=== PATIENT | female | born 1965 | race American Indian/Alaskan Native ===

== ENCOUNTER 2016-10-19 14:20 | Emergency (ER) | payer BC, MEDICAID, OTHER ==
[2016-10-19 15:51] VITALS: BP 97/66
--- NOTE | 2016-10-19 16:15 | EDM.PDOC ---
ED HPI GENERAL MEDICAL PROBLEM - General Chief Complaint: Upper Extremity Injury/Pain Stated Complaint: [id number] FELL IN ALLEY Time Seen by Provider: 10/19/16 16:09 Source of Information: Reports: Patient History Limitations: Reports: No Limitations - History of Present Illness INITIAL COMMENTS - FREE TEXT/NARRATIVE: This 50 yo female patient reports to the ED with pain in her right hand over the 3-5 MCP joints and some left sided posterior neck pain. The patient reports she was walking in an alley when she tripped and fell. The patient reports no loss of consciousness before, during or after the fall. The patient reports she has been attempting to rest and ice the area, but she continues to be unable to make a fist. The patient also has an abrasion to the right knee. Onset: Today Duration: Hour(s):, Constant Location: Reports: Neck (left lateral posterior neck), Upper Extremity, Right (3 -5 MCP), Lower Extremity, Right (knee abrsion) Quality: Reports: Ache, Dull Severity: Moderate Improves with: Reports: None Worsens with: Reports: None Context: Reports: Other (fall) Associated Symptoms: Reports: No Other Symptoms Right Hand Pain Score (Numeric/FACES): 8 - Related Data Allergies Allergy/AdvReac Type Severity Reaction Status Date / Time No Known Allergies Allergy Verified 08/10/14 16:24 Home Meds: Home Meds Calcium Carbonate [Calcium] 1 tab PO DAILY 08/10/14 [History] Lisinopril 2.5 mg PO DAILY 08/10/14 [History] metFORMIN [Glucophage] 1,000 mg PO BID 08/10/14 [History] Past Medical History HEENT History: Reports: None Cardiovascular History: Reports: None Respiratory History: Reports: None Gastrointestinal History: Reports: None Genitourinary History: Reports: None 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 Neurological History: Reports: None Psychiatric History: Reports: Depression Endocrine/Metabolic History: Reports: Diabetes, Type II Hematologic History: Reports: None Immunologic History: Reports: None Oncologic (Cancer) History: Reports: None Dermatologic History: Reports: None - Infectious Disease History Infectious Disease History: Reports: None - Past Surgical History HEENT Surgical History: Reports: None Cardiovascular Surgical History: Reports: None Respiratory Surgical History: Reports: None GI Surgical History: Reports: Cholecystectomy Female Surgical History: Reports: None Endocrine Surgical History: Reports: None Neurological Surgical History: Reports: None Musculoskeletal Surgical History: Reports: Other (See Below) Other Musculoskeletal Surgeries/Procedures:: ankle surgery X2 Social & Family History - Tobacco Use Smoking Status *Q: Current Some Day Smoker Years of Tobacco use: 33 Packs/Tins Daily: 0.1 - Caffeine Use Caffeine Use: Reports: Coffee, Energy Drinks, Soda, Tea - Alcohol Use Days Per Week of Alcohol Use: 0 - Recreational Drug Use Recreational Drug Use: Yes Drug Use in Last 12 Months: Yes Recreational Drug Type: Reports: Marijuana/Hashish Recreational Drug Use Frequency: Not Used In Over 4 Months - Living Situation & Occupation Living situation: Reports: Single, with Family Occupation: Employed Review of Systems - Review of Systems Review Of Systems: ROS reveals no pertinent complaints other than HPI. ED EXAM, GENERAL - Physical Exam Exam: See Below Exam Limited By: No Limitations General Appearance: Alert, WD/WN, Moderate Distress Eye Exam: Bilateral Eye: EOMI, Normal Inspection, PERRL Ears: Normal External Exam, Normal Canal, Hearing Grossly Normal, Normal TMs Nose: Normal Inspection, Normal Mucosa, No Blood Throat/Mouth: Normal Inspection, Normal Lips, Normal Teeth, Normal Gums, Normal Oropharynx, Normal Voice, No Airway Compromise Head: Atraumatic, Normocephalic Neck: Normal Inspection, Supple, Full Range of Motion, Tender Lateral (left posterior lateral ) Respiratory/Chest: No Respiratory Distress, Lungs Clear, Normal Breath Sounds, No Accessory Muscle Use, Chest Non-Tender Cardiovascular: Normal Peripheral Pulses, Regular Rate, Rhythm, No Edema, No Gallop, No JVD, No Murmur, No Rub GI/Abdominal: Normal Bowel Sounds, Soft, Non-Tender, No Organomegaly, No Distention, No Abnormal Bruit, No Mass (Female) Exam: Deferred Rectal (Female) Exam: Deferred Back Exam: Normal Inspection, Full Range of Motion Extremities: Arm Pain (right hand pain with swelling), Other (right knee abrasion) Neurological: Alert, Oriented, CN II-XII Intact, Normal Cognition, Normal Gait, Normal Reflexes, No Motor/Sensory Deficits Psychiatric: Normal Affect, Normal Mood Skin Exam: Warm, Dry, Intact, Normal Color, No Rash Lymphatic: No Adenopathy Course - Vital Signs Last Recorded V/S: Last Vital Signs Temp 36.4 C 10/19/16 15:47 Pulse 55 L 10/19/16 15:47 Resp 16 10/19/16 15:47 BP 97/66 10/19/16 15:47 Pulse Ox 98 10/19/16 15:47 - Orders/Labs/Meds Orders: Active Orders 24 hr Category Date Time Status Hand Comp Min 3V Rt [CR] Urgent Exams 10/19/16 15:54 Taken Departure - Departure Time of Disposition: 16:24 Disposition: Home, Self-Care 01 Condition: Fair Clinical Impression: Contusion of right hand Qualifiers: Encounter type: initial encounter Qualified Code(s): S60.221A - Contusion of right hand, initial encounter - Discharge Information Instructions: Hand Contusion, [id number] Forms: ED Department Discharge Care Plan Goals: The patient was advised of the examination and x-ray results during the visit. The patient was placed in a splint for her right hand. The patient should rest, ice and elevate the right hand over the next 48 hours. The patient was given a dose of Naproxen while in the ED. If the patient has any additional symptoms or concerns, the patient should follow-up with her primary care facility or return to the ED. - My Orders Last 24 Hours: My Active Orders 10/19/16 15:54 Hand Comp Min 3V Rt [CR] Urgent - Assessment/Plan Last 24 Hours: My Active Orders 10/19/16 15:54 Hand Comp Min 3V Rt [CR] Urgent
--- NOTE | 2016-10-19 16:16 | CR ---
Clinical history: 50-year-old female injured right hand (fall). Interpretation: Chronic arthritic degenerative changes involving the first metacarpophalangeal and a ll interphalangeal/DIP joints. No sign of right hand fracture or dislocation but faint transverse lucent line across the "waist" of the carpal navicular bone that could represent occult nondisplaced fracture. Point tenderness anato irineo snuffbox? No other fracture/dislocation of the wrist. CONCLUSION: Subtle observation navicular bone left wrist (see above). No fracture or dislocation gannon dYissel Osteoarthritis.
[2016-10-19] MEDS ORDERED: Naproxen 500 MG Tab PO ONE (16:28)
== END 2016-10-19 16:40 | disposition home or self-care (01) ==
LOC: DL.ED 14:20
DX: S60.221A Contusion of right hand, initial encounter (principal); S80.211A Abrasion, right knee, initial encounter; E11.9 Type 2 diabetes mellitus without complications; F17.210 Nicotine dependence, cigarettes, uncomplicated; Z79.84 Long term (current) use of oral hypoglycemic drugs; Z98.890 Other specified postprocedural states; Z90.49 Acquired absence of other specified parts of digestive tract; Z79.899 Other long term (current) drug therapy; W01.198A Fall on same level from slipping, tripping and stumbling with subsequent striking against other object, initial encounter
CPT/HCPCS: 73130; 99284; A9270

== ENCOUNTER 2017-09-12 10:06 | Emergency (ER) | payer MEDICAID ==
[2017-09-12 10:26] VITALS: BP 110/54
--- NOTE | 2017-09-12 10:30 | EDM.PDOC ---
ED HPI GENERAL MEDICAL PROBLEM - General Chief Complaint: Lower Extremity Injury/Pain Stated Complaint: [id number] SPURS ON RIGHT FOOT CANT WALK ON IT Time Seen by Provider: 09/12/17 10:27 Source of Information: Reports: Patient, Old Records, RN, RN Notes Reviewed History Limitations: Reports: No Limitations - History of Present Illness INITIAL COMMENTS - FREE TEXT/NARRATIVE: Pt presents to ER from home with c/o right ankle pain, and cannot walk on it. Pt has hx of chronic rt ankle pain with known bone spurs. She has seen Dr. Shara [facility]es [facility], and has an MRI of her ankle scheduled for tomorrow , but states she couldn't wait due to the pain. Duration: Chronic, Getting Worse Location: Reports: Lower Extremity, Right Quality: Reports: Ache, Same as Previous Episode Severity: Severe Improves with: Reports: None Worsens with: Reports: Other (weight bearing), Movement Associated Symptoms: Reports: No Other Symptoms Treatments TOOL GRINDER: Reports: Acetaminophen, NSAIDS, Other Medication(s) Right Feet Pain Score (Numeric/FACES): 10 - Related Data Allergies Allergy/AdvReac Type Severity Reaction Status Date / Time No Known Allergies Allergy Verified 09/12/17 10:26 Home Meds: Home Meds Calcium Carbonate [Calcium] 1 tab PO DAILY 08/10/14 [History] Lisinopril 2.5 mg PO DAILY 08/10/14 [History] metFORMIN [Glucophage] 1,000 mg PO BID 08/10/14 [History] Etodolac 1 tab PO BID 09/12/17 [History] FLUoxetine HCl [Fluoxetine HCl] 20 mg PO DAILY 09/12/17 [History] Glimepiride [Amaryl] 2 mg PO DAILY 09/12/17 [History] Hydrocodone/Acetaminophen [Hydrocodon-Acetaminophen 5-325] 1 each PO ASDIRECTED PRN 09/12/17 [History] SitaGLIPtin [Januvia] 50 mg PO DAILY 09/12/17 [History] atorvaSTATin [Lipitor] 20 mg PO DAILY 09/12/17 [History] Past Medical History HEENT History: Reports: None Cardiovascular History: Reports: None Respiratory History: Reports: None Gastrointestinal History: Reports: None Genitourinary History: Reports: None 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 Neurological History: Reports: None Psychiatric History: Reports: Depression Endocrine/Metabolic History: Reports: Diabetes, Type II Hematologic History: Reports: None Immunologic History: Reports: None Oncologic (Cancer) History: Reports: None Dermatologic History: Reports: None - Infectious Disease History Infectious Disease History: Reports: None - Past Surgical History HEENT Surgical History: Reports: None Cardiovascular Surgical History: Reports: None Respiratory Surgical History: Reports: None GI Surgical History: Reports: Cholecystectomy Female Surgical History: Reports: None Endocrine Surgical History: Reports: None Neurological Surgical History: Reports: None Musculoskeletal Surgical History: Reports: Other (See Below) Other Musculoskeletal Surgeries/Procedures:: ankle surgery X2 Social & Family History - Family History Family Medical History: Noncontributory - Caffeine Use Caffeine Use: Reports: Coffee, Energy Drinks, Soda, Tea - Living Situation & Occupation Living situation: Reports: Single, with Family Occupation: Employed Review of Systems - Review of Systems Review Of Systems: ROS reveals no pertinent complaints other than HPI. ED EXAM, GENERAL - Physical Exam Exam: See Below Exam Limited By: No Limitations General Appearance: Alert, WD/WN, No Apparent Distress Throat/Mouth: Normal Voice Head: Atraumatic, Normocephalic Respiratory/Chest: No Respiratory Distress Cardiovascular: Normal Peripheral Pulses Extremities: No Pedal Edema, Normal Capillary Refill, Joint Swelling (Rt ankle) , Limited Range of Motion (Rt ankle due to pain) Neurological: Alert, Oriented, Normal Cognition, No Motor/Sensory Deficits Psychiatric: Normal Mood Skin Exam: Warm, Dry, Intact, Normal Color, No Rash Course - Vital Signs Last Recorded V/S: Last Vital Signs Temp 36.5 C 09/12/17 10:22 Pulse 61 09/12/17 10:22 Resp 16 09/12/17 10:22 BP 110/54 L 09/12/17 10:22 Pulse Ox 98 09/12/17 10:22 - Orders/Labs/Meds Orders: Active Orders 24 hr Category Date Time Status DME for Discharge [COMM] Routine Oth 09/12/17 10:51 Ordered Departure - Departure Time of Disposition: 10:53 Disposition: Home, Self-Care 01 Condition: Good Clinical Impression: Bone spur of right ankle Degenerative arthritis of right ankle Qualifiers: Osteoarthritis type: unspecified Qualified Code(s): M19.071 - Primary osteoarthritis, right ankle and foot - Discharge Information Instructions: Crutch Use, Adult, [id number], Osteoarthritis Forms: ED Department Discharge Additional Instructions: Use crutches to be non-weight bearing, or partial weight bearing on the right ankle. Rest, ice, and elevate the right ankle. Follow up for MRI and with Dr. Shara Borges as planned. - My Orders Last 24 Hours: My Active Orders 09/12/17 10:51 DME for Discharge [COMM] Routine - Assessment/Plan Last 24 Hours: My Active Orders 09/12/17 10:51 DME for Discharge [COMM] Routine
== END 2017-09-12 11:10 | disposition home or self-care (01) ==
LOC: DL.ED 10:06
DX: M19.071 Primary osteoarthritis, right ankle and foot (principal); M77.9 Enthesopathy, unspecified; E11.9 Type 2 diabetes mellitus without complications; Z79.899 Other long term (current) drug therapy; Z79.84 Long term (current) use of oral hypoglycemic drugs
CPT/HCPCS: 99283

== ENCOUNTER 2017-12-02 06:53 | Day surgery (SDC) | payer MEDICAID ==
[~2017-12-02 06:53] MED LIST: Sodium Chloride 0.9% 10 ML Syringe FLUSH PRN
[2017-12-02] MEDS ORDERED: Lactated Ringers 1,000 ML IV ONE (06:54)
[2017-12-02] MEDS ORDERED: fentaNYL 100 MCG/2 ML SDV IV ONE (06:54)
[2017-12-02] MEDS ORDERED: Midazolam 1 MG/ML 2 ML SDV IV ONE (06:54)
[2017-12-02] MEDS ORDERED: Ondansetron 4 MG/2 ML SDV IV ONE (06:54)
[2017-12-02] MEDS ORDERED: Glycopyrrolate 0.2 MG/ML 2 ML SDV IV ONE (06:54)
[2017-12-02] MEDS ORDERED: Bupivacaine 0.5% 30 ML SDV INJECT ONE ×2 (06:54→09:09)
[2017-12-02] MEDS ORDERED: Lidocaine 1% 30 ML SDV INJECT ONE ×2 (06:54→09:09)
[2017-12-02] MEDS ORDERED: ePHEDrine 50 MG/ML SDV IV ONE (06:54)
[2017-12-02] MEDS ORDERED: Propofol 200 MG/20 ML SDV IV ONE (06:54)
[2017-12-02] MEDS ORDERED: ceFAZolin 1 GM in Premix Bag 1 BAG IV ONE (07:00)
[2017-12-02] MEDS ORDERED: Lactated Ringers 1,000 ML IV SCH (07:00)
[2017-12-02] MEDS ORDERED: Bupivacaine 0.5% 30 ML SDV ONE ×2 (07:22→07:23)
[2017-12-02] MEDS ORDERED: Lidocaine 1% 30 ML SDV ONE (07:23)
[2017-12-02] MEDS ORDERED: Acetaminophen/oxyCODONE 325-5 MG Tab PO PRN (11:43)
--- NOTE | 2017-12-02 11:48 | PCM.OPNOTE ---
- General Post-Op/Procedure Note Date of Surgery/Procedure: 12/02/17 Operative Procedure(s): RIght ankle arthroscopy with debridement and subchondral drilling of osteochondral defect of talus, lateral ankle stabilization procedure, posterior tibial tendon repair. Pre Op Diagnosis: right ankle pain with osteochondral defect of talus, lateral ankle instability, posterior tibial tendon tear PTTD stage 1. Post-Op Diagnosis: layo Anesthesia Technique: General LMA Primary Surgeon: Gogo Borges Anesthesia Provider: Robin Sheldon EBL in mLs: 15 Complications: none Condition: Good Free Text/Narrative:: Pt tolerated procedure well and was transported to recovery with vascular status intact to right LE. Ani 3.5 corkscrew anchor to distal fibula. well padded L&U split applied with foot in slight eversion.
[2017-12-02 14:48] VITALS: BP 126/70
--- NOTE | 2017-12-03 13:37 | OR ---
DATE: 12/02/2017 PREOPERATIVE DIAGNOSES: 1. Right chronic ankle pain. 2. Right ankle instability. 3. Right osteochondral defect of the talus. 4. Right foot posterior tibial tendon tear with posterior tibial tendon dysfunction, stage I. POSTOPERATIVE DIAGNOSES: 1. Right chronic ankle pain. 2. Right ankle instability. 3. Right osteochondral defect of the talus. 4. Right foot posterior tibial tendon tear with posterior tibial tendon dysfunction, stage I. PROCEDURES PERFORMED: 1. Right ankle arthroscopy with debridement and subchondral drilling/microfracture of osteochondral defect of the talus. 2. Right lateral ankle stabilization/Brostrom Shahid procedure. 3. Right foot posterior tibial tendon tear repair. ANESTHESIA: General LMA with preoperative local block of 10 mL 1:1 mixture of 1% lidocaine plain and 0.5% Marcaine plain. TOURNIQUET TIME: Pneumatic thigh tourniquet, 62 minutes. This was then let down for greater than 15 minutes and let back up for 58 minutes. ESTIMATED BLOOD LOSS: Minimal. SPECIMEN: None. COMPLICATIONS: None. INDICATIONS: Italia is a 51-year-old female who presents with right foot and ankle pain. She has been having this pain for over 2 years now. She has pain at the ankle joint which feels deep in the joint, also at the lateral outside ankle and inside of the ankle. She has had multiple different injuries to this ankle and also reports that she sprains this ankle at least twice a week. She recently just had a new inversion-type injury and reports instability symptoms, where it is hard for her to walk on any type of uneven surface. We have tried ankle braces, immobilization in a Cam boot, physical therapy, and injection into the ankle joint with no relief. She has failed conservative options. She does have a mild pes planus foot structure on stance; but she has a neutral heel on stance, is not everted, and has induration with heel lift; and she does have somewhat of an arch still. She has pain along that posterior tibial tendon as well after an injury. She stated this is when it started. X-rays reveal ankle with no signs of fracture, arthritic changes including joint space narrowing and periarticular spurring present. MRI of the right ankle reveals a tear of the posterior tibial tendon at the area just distal to the medial malleolus with synovitis present to the tendon. There is a tear of the ATFL ligament with increased signal to the ankle joint, osteochondral defect of the lateral central talus. There is bone bruising at the lateral talus and lateral malleolus without any signs of fracture, bone spurring at the anterior tibial. The patient voiced good understanding of the proposed procedure and possible complications and elects to have surgery at this time. DESCRIPTION OF THE PROCEDURE: The patient was taken to the operating room lying in the supine position. After adequate anesthesia induction as described above, the right foot and ankle were prepped and draped in the usual sterile fashion. A pneumatic thigh tourniquet was inflated to 240 mmHg. Attention was then directed to the right ankle, and the dorsal cutaneous nerve was attempted to be palpated and marked out on the lateral ankle. The saphenous neurovascular bundle was then palpated, and a small stab incision was made just medial to the anterior tibial tendon being careful to avoid the saphenous neurovascular bundle. The ankle distractor was applied, and a 2.7 ankle scope was then inserted into the ankle capsule. At this point, it was noted that it was not able to be seen through the scope because the scope was bent. We had to get a new scope which had a small scratch in it but ended up working. A small stab incision was made at the lateral dorsal ankle being careful to avoid the intermediate cutaneous nerve. The scope was used to inspect the ankle. There was noted to be a moderate amount of chondromalacia throughout the entire ankle. There was a significant amount of synovitis at the dorsal ankle as well as at the dorsal lateral ankle. This was debrided with a shaver. There was also noted to be a bone spur at the dorsal tibia which was also debrided and taken down with a shaver. The lateral ankle gutter was also debrided with the shaver. There was noted to be an osteochondral defect at the lateral talar dome, and this was debrided with a curette to get all loose cartilage. A [employer] microfracture instrument was then used to microfracture the area. There were no other defects noted throughout the ankle joint. The ankle scope and shaver were then removed from the ankle joint, and the incisions were repaired with 4-0 nylon. Attention was then directed over to the medial ankle/foot along the posterior tibial tendon. An approximately 8 cm curvilinear incision was made overlying the tendon course. Sharp and blunt dissection was performed down to the level of the posterior tibial tendon sheath. The sheath was opened, and the tendon was exposed. There was noted to be a tear to the posterior tibial tendon measuring approximately 2.5 cm in length. The bad tendon was excised, and the tendon was re-tubularized with a 3-0 nylon suture, and the tendon tear was repaired. The rest of the tendon appeared healthy. The area was irrigated with copious amounts of sterile saline. The sheath and retinaculum were repaired with 3-0 Vicryl. The skin incision site was then closed with 4-0 nylon. Attention was then directed to the distal fibula, where a curvilinear incision was made approximately 5 cm in length at the distal anterior aspect of the fibula. Sharp and blunt dissection was performed down to the level of the ankle joint capsule and inferior extensor retinaculum. Care was taken to avoid all neurovascular structures and cauterize all bleeders. A #15 blade was used to incise anterior and lateral ankle capsule and ATFL down to the level of the peroneal tendon sheath. The tendon was visualized at that time and looked healthy. Attention was directed back to the anterior lateral ankle, and dissection was made in the layer the extensor retinaculum and the anterior joint capsule. The periosteum was elevated from the distal fibula, and at this point, there was noted to be a large bone fragment which was excised from the area. A curette and a rongeur were used to create a gutter running transversely along the tip of the distal fibula down to the good bleeding bone. A Ani 3.5 corkscrew anchor was then inserted from distal to proximal centered at the distal tip of the fibula. I was careful not to enter the ankle joint or the peroneal groove. The suture from the bone anchor was then used to suture the ATFL and anterior capsule and secured them down to the fibula with the ankle held in the everted position. The suture was then again used to suture down the extensor retinaculum over the anterior ankle capsule to the fibula for reinforcement of the repair, and the remainder of the suture was used to secure the periosteum to the inferior retinaculum in a [id number] fashion with the foot held in the everted position. The ankle was tested and noted to be stable to inversion and talar tilt at this time. The area was irrigated with copious amounts of sterile saline. Deep closure was completed with 3-0 Vicryl, and skin closure was completed with 4-0 nylon. The area was dressed with Xeroform to the incision site, fluffs, Webril, and a well-padded L and U splint with the foot in just slight eversion. The patient tolerated the procedure well and transferred to recovery with good vascular status intact to the right foot and ankle. The patient was then discharged to home when she met hospital discharge requirements. [facility] /[id number]
== END 2017-12-02 14:01 | disposition home or self-care (01) ==
LOC: DL.SDS 06:53
PROVIDERS: ATTEND Podiatrist
DX: M25.371 Other instability, right ankle (principal); M24.171 Other articular cartilage disorders, right ankle; M76.821 Posterior tibial tendinitis, right leg; S96.811A Strain of other specified muscles and tendons at ankle and foot level, right foot, initial encounter; G89.29 Other chronic pain; M25.571 Pain in right ankle and joints of right foot; E11.9 Type 2 diabetes mellitus without complications; F17.210 Nicotine dependence, cigarettes, uncomplicated; F32.9 Major depressive disorder, single episode, unspecified; Z79.84 Long term (current) use of oral hypoglycemic drugs; Z79.899 Other long term (current) drug therapy; X58.XXXA Exposure to other specified factors, initial encounter
CPT/HCPCS: 27698; 29891; 82962; C1713; J2250; J2405; J2704; J3010; J3490; J7120

== ENCOUNTER 2021-01-01 03:41 | Emergency (ER) | payer MEDICAID ==
[2021-01-01 03:56] VITALS: BP 105/71; PULSE 85
[2021-01-01] MEDS ORDERED: Ketorolac 30 MG/ML SDV IM ONE (04:08)
[2021-01-01] MEDS ORDERED: Orphenadrine 60 MG/2 ML Inj IM ONE (04:09)
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
[2021-01-01] MEDS ORDERED: Acetaminophen/HYDROcodone 325-10 MG Tab PO ONE (04:45)
== END 2021-01-01 06:41 | disposition home or self-care (01) ==
LOC: DL.ED 03:41
DX: M43.6 Torticollis (principal); E78.00 Pure hypercholesterolemia, unspecified; I10 Essential (primary) hypertension; E11.9 Type 2 diabetes mellitus without complications; Z72.0 Tobacco use; Z79.84 Long term (current) use of oral hypoglycemic drugs; Z79.899 Other long term (current) drug therapy
CPT/HCPCS: 96372; 99283; A9270-GY; J1885; J2360

== ENCOUNTER 2022-03-31 12:37 | Emergency (ER) | payer MEDICAID ==
[2022-03-31 12:28] VITALS: BP 126/78
[2022-03-31 13:21] LABS: ANION GAP 17.4 mEq/L (7-13)
[2022-03-31 13:23] LABS: PTT,PARTIAL THROMBOPLSTIN TIME 23.2 SEC (22.0-34.0)
[2022-03-31 13:37] LABS: CORONAVIRUS COVID-19 NAA NEGATIVE (NEGATIVE)
[2022-03-31] MEDS ORDERED: Lactated Ringers 1,000 ML IV ONE (13:54)
[2022-03-31] MEDS ORDERED: Albuterol/Ipratropium 3.0-0.5 MG/3 ML Neb Soln NEB ONE (14:16)
[2022-03-31] MEDS ORDERED: Benzonatate 100 MG Cap PO ONE (14:16)
[2022-03-31 14:46] VITALS: PULSE 64
== END 2022-03-31 14:57 | disposition home or self-care (01) ==
LOC: DL.ED 12:37
DX: J10.1 Influenza due to other identified influenza virus with other respiratory manifestations (principal); I10 Essential (primary) hypertension; E78.00 Pure hypercholesterolemia, unspecified; E11.9 Type 2 diabetes mellitus without complications; Z79.84 Long term (current) use of oral hypoglycemic drugs; Z79.899 Other long term (current) drug therapy; Z20.822 Contact with and (suspected) exposure to COVID-19
CPT/HCPCS: 0240U; 36415; 71045; 80053; 83605; 83735; 83880; 84484; 85025; 85610; 85730; 86140; 87040; 93010; 94640; 96360; 99284; 99285; A9270; J3490; J7120; J7620-GY